=== PATIENT | female | born 1950 | race African-American/Black ===

== ENCOUNTER 2016-05-12 15:27 | Inpatient (IN) | payer MEDICARE, MEDICAID ==
[~2016-05-12] VITALS: Ht 165.1 cm; Wt 59.9 kg
[2016-05-12] MEDS ORDERED: HYDR12.529 PO (15:32)
[2016-05-12 16:39] LABS: EOSINOPHILS % 1.1 % (0.0-5.0); HEMATOCRIT. 39.2 % (36.0-48.0); HEMOGLOBIN. 13.3 g/dL (12.0-16.0); LYMPHOCYTES % 25.4 % (20.0-50.0); MEAN CORPUSCULAR HEMOGLOBIN 30.1 pg (28.0-32.0); MEAN CORPUSCULAR HGB CONC 33.8 g/dL (31.0-37.0); MEAN CORPUSCULAR VOLUME 88.9 fL (81.0-99.0); MEAN PLATELET VOLUME 9.6 fl (7.4-10.4); MONOCYTES % 7.8 % (2.0-8.0); NEUTROPHILS % 64.7 % (40.0-76.0); PLATELET 232 x1000/uL (130-400); RED BLOOD CELL COUNT 4.41 mill/uL (4.2-5.4); WHITE BLOOD COUNT 9.5 x1000/uL (4.5-11.0)
[2016-05-12 16:44] LABS: PARTIAL THROMBOPLASTIN TIME 31.4 sec (24.0-34.0); PROTHROMBIN TIME 10.6 sec
[2016-05-12 16:47] LABS: ALANINE AMINOTRANSFERASE 19 IU/L (13-61); ALBUMIN 3.5 g/dL (3.4-5.0); ANION GAP 13; CALCIUM 8.8 mg/dL (8.5-10.1); CARBON DIOXIDE 26 mEq/L (21-32); CHLORIDE 107 mEq/L (98-107); INDEX HEMOLYSI 1 (1-3); INDEX ICTERIC 1 (1-4); INDEX LIPEMIC 1 (1-3); LIPASE 170 IU/L (73-393); UREA NITROGEN BLOOD 8 mg/dL (7-21)
[2016-05-12 16:52] LABS: NT PRO B-TYPE NATRIURETIC PEP 59 pg/mL (5-125); TROPONIN I < 0.02 ng/mL (0.00-0.04); eGFR > 60 mL/min (>60)
[2016-05-12 18:36] LABS: CLARITY URINE CLEAR (CLEAR); COLOR URINE YELLOW (YELLOW); GLUCOSE URINE NEGATIVE (NEGATIVE); KETONES URINE NEGATIVE (NEGATIVE); LEUKOCYTE ESTERASE URINE NEGATIVE (NEGATIVE); NITRITE URINE NEGATIVE (NEGATIVE); OCCULT BLOOD URINE NEGATIVE (NEGATIVE); PH URINE 7.5 (4.5-8.0); PROTEIN URINE NEGATIVE (NEGATIVE); SPECIFIC GRAVITY URINE 1.009 (1.005-1.030); UROBILINOGEN URINE 0.2 E.U./dL (0.2-1.0)
[2016-05-12] MEDS ORDERED: LORAZEPAM 2MG/ML CPJ IV PRN (18:45)
[2016-05-12] MEDS ORDERED: ACETAMINOPHEN 325MG TABLET PO PRN (18:45)
[2016-05-12] MEDS ORDERED: MORPHINE SULFATE 2 MG/ML CPJ (NOT FOR IM USE) IV PRN (18:45)
[2016-05-12] MEDS ORDERED: NITROGLYCERIN 0.4MG TABLET SL SL PRN (18:45)
[2016-05-12] MEDS ORDERED: TRAMADOL 50MG TABLET PO PRN (18:45)
[2016-05-12] MEDS ORDERED: IPRATROPIUM/ALBUTEROL 0.5-3(2.5)MG/3ML NEB INH PRN (18:45)
[2016-05-12] MEDS ORDERED: MAGNESIUM/ALUMINUM HYDROXIDE/SIMETHICONE 30ML UDC PO PRN (18:45)
[2016-05-12] MEDS ORDERED: CLONIDINE 0.1MG TABLET PO PRN (18:45)
[2016-05-12] MEDS ORDERED: ONDANSETRON HCL 4MG/2ML VIAL IV PRN (18:45)
[2016-05-12] MEDS ORDERED: DOCUSATE SODIUM 100MG CAPSULE PO PRN (18:45)
[2016-05-12] MEDS ORDERED: NA PHOS,M-B/NA PHOS,DI-BA ENEMA 118ML PR PRN (18:45)
[2016-05-12] MEDS ORDERED: DIPHENHYDRAMINE 50MG/ML VIAL IV PRN (18:45)
[2016-05-12 21:00] VITALS: BP 130/82
[2016-05-12] MEDS ORDERED: ZOLPIDEM TARTRATE 5MG TABLET PO PRN (21:00)
[2016-05-12] MEDS ORDERED: ASPI-1035 PO (21:22)
[2016-05-12] MEDS ORDERED: DEXT15DR5 EACHEYE (21:22)
[2016-05-12] MEDS ORDERED: OCD MT (21:22)
[2016-05-12] MEDS ORDERED: VERA240C2 PO (21:24)
[2016-05-12 21:30] VITALS: BP 130/82
[2016-05-13] VITALS: BP 106/67
[2016-05-13 08:00] VITALS: BP 121/81
[2016-05-13] MEDS: PANTOPRAZOLE SODIUM 40 MG/VIAL IV SCH (09:06)
[2016-05-13 12:00] VITALS: BP 116/79
[2016-05-13] MEDS: VERAPAMIL HCL 240MG SR TABLET PO SCH (12:55)
[2016-05-13 15:36] LABS: BASOPHILS % 0.6 % (0.0-2.0); EOSINOPHILS % 1.7 % (0.0-5.0); HEMATOCRIT. 34.4 % (36.0-48.0); HEMOGLOBIN. 11.8 g/dL (12.0-16.0); LYMPHOCYTES % 39.6 % (20.0-50.0); MEAN CORPUSCULAR HEMOGLOBIN 30.6 pg (28.0-32.0); MEAN CORPUSCULAR HGB CONC 34.4 g/dL (31.0-37.0); MEAN PLATELET VOLUME 9.7 fl (7.4-10.4); MONOCYTES % 5.5 % (2.0-8.0); NEUTROPHILS % 52.6 % (40.0-76.0); PLATELET 195 x1000/uL (130-400); RED BLOOD CELL COUNT 3.87 mill/uL (4.2-5.4); RED CELL DISTRIBUTION WIDTH 12.9 % (11.6-14.6); WHITE BLOOD COUNT 7.7 x1000/uL (4.5-11.0)
[2016-05-13 15:59] LABS: ALANINE AMINOTRANSFERASE 16 IU/L (13-61); ANION GAP 10; CALCIUM 8.2 mg/dL (8.5-10.1); CARBON DIOXIDE 28 mEq/L (21-32); CHLORIDE 104 mEq/L (98-107); INDEX HEMOLYSI 1 (1-3); INDEX ICTERIC 1 (1-4); INDEX LIPEMIC 1 (1-3); UREA NITROGEN BLOOD 7 mg/dL (7-21); eGFR > 60 mL/min (>60)
[2016-05-13 16:00] VITALS: BP 119/80
[2016-05-13] MEDS ORDERED: POTASSIUM CHLORIDE 20MEQ TABLET SR PO NR (17:15)
[2016-05-13] MEDS ORDERED: KCL 20MEQ/100ML PREMIX 100 ML IV NR (18:30)
[2016-05-13 20:00] VITALS: BP 116/75
[2016-05-13] MEDS ORDERED: METOCLOPRAMIDE HCL 10MG/2ML VIAL IV NR ×2 (20:00→23:00)
[2016-05-13] MEDS ORDERED: BISACODYL 5MG TABLET PO NR ×2 (20:00→23:00)
[2016-05-13] MEDS ORDERED: SORBITOL 70% SOLN 30ML PO NR ×2 (20:30→23:30)
[2016-05-13 21:19] LABS: HEMATOCRIT 35.9 % (36.0-48.0)
[2016-05-13] MEDS: SODIUM CHLORIDE 0.9% 1,000 ML IV SCH (21:26)
[2016-05-14] VITALS: BP 117/82
[2016-05-14] MEDS ORDERED: METOCLOPRAMIDE HCL 10MG/2ML VIAL IV NR ×2 (04:00→08:00)
[2016-05-14] MEDS: BISACODYL 5MG TABLET PO NR ×2 (04:00→06:14)
[2016-05-14] MEDS ORDERED: SORBITOL 70% SOLN 30ML PO NR (04:30)
[2016-05-14 06:47] LABS: BASOPHILS % 0.4 % (0.0-2.0); EOSINOPHILS % 0.1 % (0.0-5.0); HEMATOCRIT. 39.1 % (36.0-48.0); HEMOGLOBIN. 13.2 g/dL (12.0-16.0); LYMPHOCYTES % 13.5 % (20.0-50.0); MEAN CORPUSCULAR HEMOGLOBIN 30.3 pg (28.0-32.0); MEAN CORPUSCULAR HGB CONC 33.9 g/dL (31.0-37.0); MEAN CORPUSCULAR VOLUME 89.5 fL (81.0-99.0); MEAN PLATELET VOLUME 9.7 fl (7.4-10.4); MONOCYTES % 4.1 % (2.0-8.0); NEUTROPHILS % 81.9 % (40.0-76.0); PLATELET 226 x1000/uL (130-400); RED BLOOD CELL COUNT 4.36 mill/uL (4.2-5.4); RED CELL DISTRIBUTION WIDTH 13.2 % (11.6-14.6); WHITE BLOOD COUNT 8.9 x1000/uL (4.5-11.0)
[2016-05-14 07:12] LABS: ANION GAP 10; CALCIUM 8.8 mg/dL (8.5-10.1); CARBON DIOXIDE 27 mEq/L (21-32); CHLORIDE 110 mEq/L (98-107); INDEX HEMOLYSI 1 (1-3); INDEX ICTERIC 1 (1-4); INDEX LIPEMIC 1 (1-3); UREA NITROGEN BLOOD 7 mg/dL (7-21); eGFR > 60 mL/min (>60)
[2016-05-14 08:00] VITALS: BP 124/97
[2016-05-14] MEDS: SODIUM CHLORIDE 0.9% 1,000 ML IV SCH (09:14)
[2016-05-14] MEDS: PANTOPRAZOLE SODIUM 40 MG/VIAL IV SCH (09:14)
[2016-05-14] MEDS: VERAPAMIL HCL 240MG SR TABLET PO SCH (09:16)
[2016-05-14 12:00] VITALS: BP 127/88
[2016-05-14] MEDS ORDERED: SIMETHICONE 40 MG/0.6 ML 30ML ONE ×2 (12:13→13:38)
[2016-05-14] MEDS ORDERED: MIDAZOLAM HCL 5 MG/5 ML VIAL ONE (12:14)
[2016-05-14] MEDS ORDERED: FENTANYL CITRATE/PF 50MCG/ML 2ML VIAL ONE (12:14)
[2016-05-14] MEDS ORDERED: FENTANYL CITRATE/PF 50MCG/ML 2ML VIAL IV PRN (12:58)
[2016-05-14] MEDS ORDERED: SODIUM CHLORIDE 0.9% 10ML VIAL ONE (13:38)
[2016-05-14] MEDS ORDERED: MIDAZOLAM HCL 5 MG/5 ML VIAL IV SCH (15:00)
[2016-05-14 16:00] VITALS: BP 104/72
[2016-05-14 19:56] VITALS: BP 123/80
[2016-05-14 23:24] VITALS: BP 113/82
[2016-05-15 04:30] VITALS: BP 116/76
[2016-05-15 08:00] VITALS: BP 123/82
[2016-05-15] MEDS: PANTOPRAZOLE SODIUM 40 MG/VIAL IV SCH (09:29)
[2016-05-15] MEDS: VERAPAMIL HCL 240MG SR TABLET PO SCH (09:29)
[2016-05-15 11:10] VITALS: BP 123/82
== END 2016-05-15 12:25 | disposition home or self-care (01) | DRG 378 ==
LOC: ER 15:48 → SUPCPDRO 18:33 → 6EST 18:36
PROVIDERS: ADMIT Internal Medicine; ATTEND Internal Medicine
PROC: 0DBN8ZX Excision of Sigmoid Colon, Via Natural or Artificial Opening Endoscopic, Diagnostic (ICD-10-PCS; 2016-05-14)
PROC: 0DBL8ZX Excision of Transverse Colon, Via Natural or Artificial Opening Endoscopic, Diagnostic (ICD-10-PCS; 2016-05-14)
PROC: 0DJD8ZZ Inspection of Lower Intestinal Tract, Via Natural or Artificial Opening Endoscopic (ICD-10-PCS; principal; 2016-05-14 13:00)
DX: K57.11 Diverticulosis of small intestine without perforation or abscess with bleeding (principal); D62 Acute posthemorrhagic anemia; M19.90 Unspecified osteoarthritis, unspecified site; I10 Essential (primary) hypertension; H40.9 Unspecified glaucoma; K64.8 Other hemorrhoids; D12.3 Benign neoplasm of transverse colon; D12.5 Benign neoplasm of sigmoid colon; Z90.710 Acquired absence of both cervix and uterus; Z82.49 Family history of ischemic heart disease and other diseases of the circulatory system
CPT/HCPCS: 36415; 71010; 80048; 80053; 81003; 83690; 83880; 84484; 85014; 85018; 85025; 85610; 85730; 86850; 86870; 86900; 88305; 93005; 93970; 99285; A4216; C9113; J2250; J2765; J3010; J3480; J7030; J7040; J7050